=== PATIENT | female | born 1975 | race Two or more races ===

== ENCOUNTER 2025-04-22 14:10 | Outpatient (AMB) | payer MEDICAID, SELFPAY ==
[2025-04-22 14:29] VITALS: BP 134/84; PULSE 90; RESP 18; TEMP 36.3; O2SAT 97; BMI 34.4
--- NOTE | 2025-04-22 14:29 | ORTHONT_ITS ---
Vital signs 04/22/25 14:29 Height 1.52 m Height Method Stated Weight 79.549 kg Weight Measurement Method Standing Scale BMI 34.4 BP 134/84 H Blood Pressure Source Automatic Cuff Blood Pressure Location Right Upper Arm Position Sitting Respiration 18 Pulse 90 Pulse Source Monitor Temp 97.3 F Temp Source Temporal Artery Scan Pulse Oximetry (%) 97 Oxygen Delivery Method Room Air Med/Allergies Allergies & Medications Allergies No Known Drug Allergies Allergy (Verified 04/22/25 14:33) Medication Reconciliation ibuprofen 200 mg capsule 200 mg PO Q6H PRN Pain 03/12/24 [History Confirmed 04/22/25] semaglutide 1 mg/dose (4 mg/3 mL) subcutaneous pen injector (Ozempic) 1 mg subcut QWEEK 04/02/24 [History Confirmed 04/22/25] aspirin 81 mg tablet,delayed release 81 mg PO BID #60 tabs 04/04/24 [Rx Confirmed 04/22/25] doxycycline hyclate 100 mg tablet 100 mg PO BID #14 tabs 04/04/24 [Rx Confirmed 04/22/25] meloxicam 7.5 mg tablet 7.5 mg PO QDAY #30 tabs 04/04/24 [Rx Confirmed 04/22/25] sennosides 8.6 mg-docusate sodium 50 mg tablet (Senna-S) 1 tab-cap PO QDAY #30 tabs 04/04/24 [Rx Confirmed 04/22/25] acetaminophen 500 mg tablet (Acetaminophen Extra Strength) 1,000 mg (2 x 500 mg) PO Q6H PRN pain #90 tabs 04/19/24 [Rx Confirmed 04/22/25] oxycodone 5 mg tablet 5 mg PO Q6H PRN pain #28 tabs 04/19/24 [Rx Confirmed 04/22/25] Exam Exam Patient is in no acute distress and is cooperative with the examination today. Patient has a normal mood and affect. Breathing is nonlabored. In no respiratory distress. Bilateral extremities were evaluated and demonstrates sensation intact to light touch. Palpable pedal pulses are present. No significant edema is present. Left knee incision is clean dry intact. Range of motion 0 to 100 degrees Assessment and Plan Problem List (1) Unilateral primary osteoarthritis, left knee: Status: Acute Plan: Patient is doing well status post left total knee replacement. She is doing well. She is doing well but reports that there is some issues with stairs We will get new x-rays and see her for routine follow-up (2) Status post total left knee replacement: Status: Acute Office Procedures GNS Level of Care Nursing/Assessment Patient Status: Established Patient Nursing Assessment/Reassesment: Medication Reconciliation, Update PMH in EMR and Vital Signs Coordination of Care: Complex Care and Chronic Disease 1-5, Education Complex Pt/Fam, Consent,records obtained, informed consent, Lab and Imaging orders, Results/Orders obtained and Staff clarify orders Established Patient Charge Established Patient Point Assignment: 110 Established Patient Point Charge: EP Level 4 (120-155) MA Intake Visit Data Collection New Patient or Established: Established Patient (seen at [facility] within 3 years) Reason for Visit:: 1 year post op tka Seen by Clinical Staff ONLY (RN/MA): No Verbal consent obtained for Telemed visit?: No 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 PCP or OBGYN visit in last 3 months: Yes Hx Now: No Do You Feel Safe at Home: Yes Authorities Contacted: N/A Questionairres Past Medical History Past Medical History Have you ever been diagnosed with any of the following: Neurological Problems Seizures: No Cardiology Problems Congestive Heart Failure: No Respiratory Problems Chronic Obstructive Pulmonary Disease (COPD): No Smoking: No Smoking Cessation Counseling: No Smoking Exposure: No Tobacco Use: No Stomache/Intestinal Problems Hepatitis: No Obesity: Yes Genital/Urinary Problems Renal Disease: No Reproductive Problems Previous Pregnancies: Yes Musculoskeletal Problems Arthritis: Yes Endocrine Problems Diabetes Mellitus Type 1: No Diabetes Mellitus Type 2: Yes Other Problems Hospitalization: Yes (knee surgery) Shingles: No Blood Transfusions: No Blood Transfusion Reaction: No Anesthesia Reactions: No Chicken Pox: Yes Measles: Yes Mumps: Yes Cancer: No Subjective Visit Visit for: follow up visit and knee Immunization / Flu Flu Vaccine in the Last 12 Months: No Flu Vaccine Exclusion Criteria: No Exclusion Criteria History of Present Illness Chief complaint: POST OP 1 YEAR TKA Della is 2 years out from the right knee and 1 year out from the left knee.. He continues to improve. She has some issues with stairs and kneeling down only with the left. She reports that she has no issues at all when on flat ground Personal History Red flag PMH: BMI BMI Counceling provided: Yes Pain Pain level (0-10): 2 Ambulatory data Ambulatory device: none Treatments Improvement with previous injections: No Improvement with PT: No Improvement with NSAIDS: no Review of Systems Review of Systems: All systems negative unless otherwise noted in HPI.
--- NOTE | 2025-04-22 14:30 | XR_ITS ---
Examination: Bilateral knees 2 views Right lateral knee left lateral knee 2 views Bilateral axial knees single view TECHNIQUE: Bilateral AP knees single view standing, bilateral PA knees single view standing flexion Standing right lateral knee left lateral knee 2 views Bilateral axial knees single view total 5 views Date and time: April 22, 2025 1540 hours INDICATIONS: Bilateral knee pain beginning 2 years ago. FINDINGS: Moderate osteopenia Bilateral total knee arthroplasties with satisfactory alignment. No loosening of the prosthetic components. No patellar dislocation IMPRESSION: Bilateral total knee arthroplasties with satisfactory alignment
== END 2025-04-22 14:31 | disposition home or self-care (01) ==
LOC: HODSRG 14:10
PROVIDERS: PCP Family Medicine; Referring Provider Family Medicine; Supervising Provider Orthopaedic Surgery Adult Reconstructive Orthopaedic Surgery; Visit Provider Orthopaedic Surgery Adult Reconstructive Orthopaedic Surgery
DX: M17.12 Unilateral primary osteoarthritis, left knee (principal); Z96.652 Presence of left artificial knee joint; E11.9 Type 2 diabetes mellitus without complications
CPT/HCPCS: 73564; 99214; G0463